=== PATIENT | female | born 1955 | race African-American/Black ===

== ENCOUNTER 2023-07-26 18:01 | Emergency (ER) | payer BC, OTHER ==
[2023-07-26 21:04] LABS: Absolute Basophils 0.1 K/uL (0-0.5); Absolute Lymphocytes (CBC) 1.7 K/uL (0.7-4.9); Absolute Monocytes 0.8 K/uL (0.1-1.3); Absolute Neutrophil 4.5 K/uL (1.8-8.0); Basophils % 0.8 % (0-1.3); Eosinophils % 0.7 % (0-4.4); Hematocrit 39.8 % (36.0-45.0); Hemoglobin 12.9 g/dL (12.0-15.0); Lymphocytes % 24.2 % (15.3-44.8); MCH 28.9 pg (27.0-35.0); MCHC 32.5 g/dL (32.0-36.0); MPV 7.5 fL (7.6-11.3); Monocytes % 10.9 % (3.3-12.3); Neutrophils % 63.4 % (41.7-73.7); Platelets 295 thou/uL (152-406); RBC Red Blood Cell Count 4.47 M/uL (3.86-4.86); Red Cell Distribution Width 16.1 % (12.1-15.2)
[2023-07-26 21:27] LABS: Albumin 3.2 g/dL (3.4-5.0); Albumin/Globulin Ratio 0.7 (1.1-1.8); Anion Gap 12.9 mEq/L (5.0-15.0); Bilirubin Total 0.8 mg/dL (0.2-1.0); Globulin 4.4 g/dL (2.3-3.5); Protein, Total 7.6 g/dL (6.4-8.2); Troponin High Sensitivity 29.7 pg/mL (<58.9)
[2023-07-26 21:29] LABS: Potassium 2.9 mEq/L (3.5-5.1)
--- NOTE | 2023-07-26 23:51 | EDPHYS ---
Physician Documentation [facility] [place] Name: Blossom Miller Age: 68 yrs Sex: Female : 1955 Arrival Date: 07/26/2023 Time: 18:01 Bed 11 Private MD: ED Physician New Montiel HPI: 07/25 18:19 This 68 yrs old Black Female presents to ER via Wheelchair with complaints of abdominal sb4 pain. 18:20 patient complains of right sided abdominal/chest pain that radiates around to her back. sb4 she states this has been going on for at least 2 weeks. she was recently admitted in [facility] and had a full cardiac workup that was negative. she is scheduled to have an EGD with Dr. Scales in about a week. states that she has also been experiencing a lot of nausea, vomiting, and constipation. Historical: - Allergies: 18:11 No Known Allergies; nj1 - PMHx: 18:11 Hypertensive disorder; Hypercholesterolemia; nj1 - PSHx: 18:11 Gastric bypass; nj1 - Immunization history:: Client reports receiving the 2nd dose of the Covid vaccine. - Infectious Disease History:: Denies. - Social history:: Smoking status: Patient denies any tobacco usage or history of. ROS: 18:20 Constitutional: Negative for fever, chills, and weight loss, sb4 18:20 Cardiovascular: Positive for chest pain, 18:20 Abdomen/GI: Positive for abdominal pain, nausea and vomiting, constipation, 18:20 All other systems are negative, Exam: 18:20 Head/Face: Normocephalic, atraumatic. Eyes: Extra-ocular motions intact. Periorbital sb4 areas with no swelling, redness, or edema. ENT: Mucous membranes moist. Cardiovascular: Regular rate and rhythm with a normal S1 and S2. Respiratory: Lungs have equal breath sounds bilaterally, clear to auscultation and percussion. No rales, rhonchi or wheezes noted. No increased work of breathing, no retractions or nasal flaring. 18:20 Skin: Warm, dry with normal turgor. Normal color with no rashes, no lesions, and no evidence of cellulitis. MS/ Extremity: Pulses equal, no cyanosis. Neurovascular intact. Full, normal range of motion. Neuro: Awake and alert, GCS 15, oriented to person, place, time, and situation. Motor strength 5/5 in all extremities. Sensory grossly intact. 18:20 Constitutional: The patient appears in no acute distress, alert, awake, obese, 18:20 Abdomen/GI: Inspection: obese Bowel sounds: normal, Palpation: abdomen is soft and non-tender, Vital Signs: 18:08 Pulse 94; Resp 18; Temp 97.1(TE); Pulse Ox 100% on R/A; Weight 124.28 kg; Height 5 ft. nj1 8 in. ; Pain 10/10; 07/26 01:00 BP 152 / 86; Pulse 96; Resp 18; Temp 97.6; Pulse Ox 100% ; pf1 07/25 18:08 Body Mass Index 41.66 (124.28 kg, 172.72 cm) nj1 07/25 18:08 Pain Scale: Adult nj1 MDM: 07/25 18:12 Patient medically screened. sb4 23:49 Data reviewed: vital signs, nurses notes, lab test result(s), radiologic studies, and sb4 as a result, I will discharge patient. Care significantly affected by the following chronic conditions: Hypertension, Obesity. Counseling: I had a detailed discussion with the patient and/or guardian regarding the historical points, exam findings, and any diagnostic results supporting the discharge/admit diagnosis, lab results, radiology results, the need for outpatient follow up, a stenographer secretary, to return to the emergency department if symptoms worsen or persist or if there are any questions or concerns that arise at home. 07/25 18:19 Order name: CBC with Diff; Complete Time: 21:06 sb4 07/25 18:19 Order name: CMP; Complete Time: 21:29 sb4 07/25 18:19 Order name: Lipase; Complete Time: 21:29 sb4 07/25 18:19 Order name: Urinalysis w/ reflexes; Complete Time: 00:51 sb4 07/25 18:19 Order name: Troponin High Sensitivity; Complete Time: 21:29 sb4 07/25 18:19 Order name: BNP; Complete Time: 21:29 sb4 07/26 00:51 Order name: Urine Culture EDMS 07/25 21:51 Order name: Chest Abdomen Pelvis W Cont EDMS 07/25 18:19 Order name: IV Saline Lock; Complete Time: 23:30 sb4 07/25 18:19 Order name: Labs collected and sent; Complete Time: 23:30 sb4 Administered Medications: 07/26 00:46 Drug: fentaNYL (PF) IVP 25 mcg IVP once Route: IVP; Site: right antecubital; cg 01:00 Follow up: Response: No adverse reaction; Marked relief of symptoms; Pain is decreased pf1 00:46 Drug: Ondansetron IVP 4 mg IVP once; over 2 minutes Route: IVP; Site: right antecubital;cg 01:00 Follow up: Response: No adverse reaction; Marked relief of symptoms pf1 Disposition Summary: 07/26/23 23:50 Discharge Ordered Notes: Location: Home sb4 Problem: an ongoing problem sb4 Symptoms: are unchanged sb4 Condition: Stable sb4 Diagnosis - Upper abdominal pain, unspecified sb4 Followup: sb4 - With: Emergency Department - When: As needed - Reason: Trouble breathing, Worsening of condition Discharge Instructions: - Discharge Summary Sheet sb4 - Abdominal Pain, Adult sb4 Forms: - Thank You Letter sb4 - Prescription Opioid Use sb4 - Patient Portal Instructions sb4 - Leadership Thank You Letter sb4 Prescriptions: - Zofran 4 mg Oral Tablet - take 1 tablet ORAL route every 12 hours As needed; 20 tablet; Refills: 0, sb4 Product Selection Permitted - Tramadol 50 mg Oral Tablet - take 1 tablet ORAL route every 8 hours as needed; 12 tablet; Refills: 0, sb4 Product Selection Permitted Signatures: Dispatcher [employer] Daxa Mcneil, MAZIN RN Christine Morin PA-C PA-C sb4 Brittny Lion RN RN nj1 Beba Barrientos RN pf1 Corrections: (The following items were deleted from the chart) 07/25 21:51 21:31 Chest Abdomen W/ Con+CT.RAD.BRZ ordered. EDMS EDMS
--- NOTE | 2023-07-26 23:51 | ER ---
Nurse's Notes [facility] Name: Blossom Miller Age: 68 yrs Sex: Female : 1955 Arrival Date: 07/26/2023 Time: 18:01 Bed 11 Private MD: Diagnosis: Upper abdominal pain, unspecified Presentation: 07/25 18:08 Chief complaint: Patient states: Right sided chest pain that radiates to back for 2 nj1 weeks, getting worse. Discharged from [place] on Tuesday. Coronavirus screen: Vaccine status: Patient reports receiving the 2nd dose of the covid vaccine. Ebola Screen: Patient denies travel to an Ebola-affected area in the 21 days before illness onset. Initial Sepsis Screen: Does the patient meet any 2 criteria? HR > 90 bpm. No. Patient's initial sepsis screen is negative. Does the patient have a suspected source of infection? No. Patient's initial sepsis screen is negative. Risk Assessment: Do you want to hurt yourself or someone else? Patient reports no desire to harm self or others. Onset of symptoms was June 2023. 18:08 Method Of Arrival: Wheelchair nj1 18:08 Acuity: DM 3 nj1 Triage Assessment: 18:11 General: Appears in no apparent distress. uncomfortable, Behavior is calm, cooperative, nj1 appropriate for age. Pain: Complains of pain in chest Pain currently is 10 out of 10 on a pain scale. Historical: - Allergies: 18:11 No Known Allergies; nj1 - PMHx: 18:11 Hypertensive disorder; Hypercholesterolemia; nj1 - PSHx: 18:11 Gastric bypass; nj1 - Immunization history:: Client reports receiving the 2nd dose of the Covid vaccine. - Infectious Disease History:: Denies. - Social history:: Smoking status: Patient denies any tobacco usage or history of. Screenin:00 [facility] ED Fall Risk Assessment (Adult) History of falling in the last 3 months, pf1 including since admission No falls in past 3 months (0 pts) Confusion or Disorientation No (0 pts) Intoxicated or Sedated No (0 pts) Impaired Gait No (0 pts) Mobility Assist Device Used No (0 pt) Altered Elimination No (0 pt) Score/Fall Risk Level 0 - 2 = Low Risk Oriented to surroundings, Maintained a safe environment, Educated pt \T\ family on fall prevention, incl call for assistance when getting out of bed. Abuse screen: Denies threats or abuse. Nutritional screening: No deficits noted. Tuberculosis screening: No symptoms or risk factors identified. Assessment: 07/26 01:00 General: Appears uncomfortable, Behavior is calm, appropriate for age. Pain: Complains pf1 of pain in chest Pain radiates to back Pain currently is 10 out of 10 on a pain scale. Quality of pain is described as pressure, radiating, sharp, Pain began suddenly. Neuro: Level of Consciousness is awake, alert, obeys commands, Oriented to person, place, time, situation, Appropriate for age. Cardiovascular: Heart tones S1 S2 Capillary refill < 3 seconds Patient's skin is warm and dry. Chest pain is described as severe, quality is sharp. Respiratory: Airway is patent Respiratory effort is even, unlabored, Respiratory pattern is regular, symmetrical. GI: No deficits noted. No signs and/or symptoms were reported involving the gastrointestinal system. : No deficits noted. No signs and/or symptoms were reported regarding the genitourinary system. Vital Signs: 07/25 18:08 Pulse 94; Resp 18; Temp 97.1(TE); Pulse Ox 100% on R/A; Weight 124.28 kg; Height 5 ft. nj1 8 in. ; Pain 10/10; 07/26 01:00 BP 152 / 86; Pulse 96; Resp 18; Temp 97.6; Pulse Ox 100% ; pf1 07/25 18:08 Body Mass Index 41.66 (124.28 kg, 172.72 cm) nj1 07/25 18:08 Pain Scale: Adult [facility] ED Course: 07/25 18:01 Patient arrived in ED. im 18:10 Triage completed. nj1 18:11 Christine Adam PA-C is PHCP. sb4 18:11 New Montiel MD is Attending Physician. sb4 18:11 Arm band placed on right wrist. nj1 20:00 Patient has correct armband on for positive identification. Bed in low position. Call pf1 light in reach. patient monitor on. Pulse ox on. NIBP on. 20:00 Provided Education on: follow up with PCP. pf1 20:50 Inserted saline lock: 20 gauge in right forearm, using aseptic technique. Blood nj1 collected. Ultrasound guided. Catheter tip well visualized within vasculature during placement. 23:08 Chest Abdomen Pelvis W Cont In Process Unspecified. EDMS 07/26 01:00 No provider procedures requiring assistance completed. IV discontinued, intact, pf1 bleeding controlled, No redness/swelling at site. Pressure dressing applied. Patient maintains SpO2 saturation greater than 95% on room air. Administered Medications: 00:46 Drug: fentaNYL (PF) IVP 25 mcg IVP once Route: IVP; Site: right antecubital; cg 01:00 Follow up: Response: No adverse reaction; Marked relief of symptoms; Pain is decreased pf1 00:46 Drug: Ondansetron IVP 4 mg IVP once; over 2 minutes Route: IVP; Site: right antecubital;cg 01:00 Follow up: Response: No adverse reaction; Marked relief of symptoms pf1 Medication: 01:00 VIS not applicable for this client. pf1 Outcome: 07/25 23:50 Discharge ordered by . irving 07/26 01:07 Discharged to home via wheelchair, with family, pf1 Condition: stable Discharge instructions given to patient, family, Instructed on discharge instructions, follow up and referral plans. Demonstrated understanding of instructions, follow-up care, medications, Prescriptions given X 2, 01:08 Patient left the ED. pf1 Signatures: Dispatcher [employer] EDMS Daxa Lindsey, RN RN Christine Morin PA-C PA-C sb4 Beba Barrientos RN RN pf1 Brittny Lion RN RN nj1 Kelly Ott Corrections: (The following items were deleted from the chart) 06:35 01:00 BP 152 / 86; Pulse 96bpm; Resp 18bpm; Pulse Ox 100%; pf1 pf1
[2023-07-27] MEDS ORDERED: ONDANSETRON 4 MG/2 ML VIAL ONE (00:42)
[2023-07-27] MEDS ORDERED: FENTANYL CITR 100 MCG/2 ML ONE (00:43)
[2023-07-27 00:48] LABS: Calcium Oxalate Crystals- Ur Many /HPF (None Seen); Specific Gravity > 1.030 (1.005-1.030); Sqamous Epithelial <5 /HPF (None Seen); Urine Bacteria <20 /HPF (<20); Urine Bilirubin 1+ (Negative); Urine Blood Negative (Negative); Urine Clarity Extremely Turbid (Clear); Urine Color Yellow (Yellow); Urine Crystals Unidentified Few /HPF (None Seen); Urine Culture Reflex Order REFLEXED; Urine Glucose NEGATIVE (Negative); Urine Ketones TRACE (Negative); Urine Microscopic Reflex YN ORDER UMIC; Urine Mucus Slight /HPF (None Seen); Urine Nitrite NEGATIVE (Negative); Urine Protein 1+ (Negative); Urine Urobilinogen 2+ (Normal); Urine WBC 20-50 /HPF (<5)
[2023-07-27 02:15] VITALS: TEMP 97.1; O2SAT 100
--- NOTE | 2023-07-27 14:09 | RAD REPORT ---
EXAM DESCRIPTION: CT Chest, Abdomen and Pelvis With Intravenous Contrast CLINICAL HISTORY: The patient is 68 years old and is Female; abd pain, right;Chest pain TECHNIQUE: Axial computed tomography images of the chest, abdomen and pelvis with intravenous contra st. Sagittal and coronal reformatted images were created and reviewed. This CT exam was performed using one or more of the following dose reduction techniques: automated exposure control, adjustme nt of the mA and/or kV according to patient size, and/or use of iterative reconstruction technique. COMPARISON: CT the abdomen and pelvis July 06, 2023 FINDINGS: CHEST: LUNGS: The lungs are clear of focal opacity, mass, or consolidation. PLEURAL SPACE: Unremarkable. No significant effusion. No pneumothorax. HEART: No cardiomegaly. No pericardial effusion. THYROID: The left lobe of thyroid is enlarged and heterogeneous. Suggestion of at least 2 thyroid nodules are noted, the largest measures 3.2 x 2.2 cm. ABDOMEN: LIVER: Unremarkable. No mass. GALLBLADDER AND BILE DUCTS: Surgical clips are present in the right upper quadrant, consistent wi th previous cholecystectomy. Mild biliary dilatation is present. PANCREAS: The pancreas is mildly atrophic. SPLEEN: Unremarkable. ADRENALS: Unremarkable. No mass. KIDNEYS AND URETERS: Unremarkable. The kidneys enhance symmetrically. No obstructing renal or ure teral calculus is seen. No hydronephrosis or hydroureter. No perinephric fluid or stranding. STOMACH AND BOWEL: Postsurgical change of the stomach is present. The stomach is fluid-filled. Th e small bowel is normal in caliber. Stool is present throughout the colon. There is no mucosal thicke gregorio or evidence of obstruction. PELVIS: APPENDIX: The appendix is normal in caliber without surrounding inflammation. BLADDER: The bladder is moderately distended. REPRODUCTIVE: The patient is status post hysterectomy. CHEST, ABDOMEN and PELVIS: INTRAPERITONEAL SPACE: Unremarkable. No significant fluid collection. No free air. BONES/JOINTS: There is no acute fracture of the visualized axial and appendicular skeleton. The v ertebral body heights and alignment are maintained. Minimal degenerative change of the spine is prese nt. SOFT TISSUES: The soft tissues are normal. VASCULATURE: Unremarkable. No aortic aneurysm. LYMPH NODES: Unremarkable. No enlarged lymph nodes. IMPRESSION: 1. No evidence of solid organ injury or traumatic bony findings on this contrasted CT of the chest, abdomen, and pelvis. 2. Left thyroid nodules. Recommend nonemergent thyroid ultrasound. Electronically signed by: Sarah Ríos MD 07/26/2023 11:40 PM CDT Due to temporary technical issues with the PACS/Fluency reporting system, reports are being signed by the in house radiologist without review as a courtesy to ensure prompt reporting. The interpreting r adiologist is fully responsible for the content of the report.
== END 2023-07-27 01:08 | disposition home or self-care (01) ==
LOC: ER 18:01
DX: R10.11 Right upper quadrant pain (principal); I10 Essential (primary) hypertension
CPT/HCPCS: 87088; 85025; 81001; 87086; 36415; 84484; 83690; 80053; 83880; 71260; 74177; Q9967; J3010; J2405